=== PATIENT | female | born 1935 | race Caucasian/White ===

== ENCOUNTER 2023-05-21 08:13 | Emergency (ER) | payer MEDICARE ==
[~2023-05-21] VITALS: Ht 162.6 cm; Wt 49.9 kg
[2023-05-21 08:13] VITALS: BP_SYST 198; RESP 18; TEMP 97; O2SAT 100
[2023-05-21] MEDS ORDERED: MORPHINE 2 MG/ML INJ. SYRINGE IVP ONE ×3 (10:15→17:30)
[2023-05-21] MEDS ORDERED: ONDANSETRON HCL 4 MG/2 ML VIAL IVP ONE (10:15)
[2023-05-21 11:21] LABS: HEMATOCRIT 40.3 % (36-48); HEMOGLOBIN 13.4 g/dL (12.0-16.0); MEAN CORPUSCULAR HEMOGLOBIN 31 pg (27-31); MEAN CORPUSCULAR HGB CONC 33 % (32-36); MEAN CORPUSCULAR VOLUME 93 fL (79.0-98.0); PLATELET COUNT (AUTO) 438 K/uL (130-430); RED BLOOD CELL COUNT(AUTO) 4.35 MIL/uL (4.2-6.2); RED CELL DISTRIBUTION WIDTH 14.2 % (9.0-15.0)
[2023-05-21 11:26] LABS: WHITE BLOOD COUNT (AUTO) 42.1 K/uL (4.8-10.8)
[2023-05-21 11:33] LABS: ANION GAP 10 (5-15); CALCIUM 10.3 mg/dL (8.4-11.0); CARBON DIOXIDE 25 mmol/L (23-29); CHLORIDE 104 mmol/L (98-107); CREATININE 0.56 mg/dL (0.55-1.30); GLUCOSE 123 mg/dL (74-106); POTASSIUM 3.9 mmol/L (3.5-5.1); SODIUM SERUM 139 mmol/L (136-145); UREA NITROGEN, BLOOD 7 mg/dL (8-21)
[2023-05-21 11:37] LABS: ALANINE AMINOTRANSFERASE 28 U/L (12-78); ALBUMIN 3.6 g/dL (3.4-4.8); ASPARTATE AMINOTRANSFERASE 18 U/L (10-37); BILIRUBIN,DIRECT 0.1 mg/dL (0.0-0.3); TOTAL BILIRUBIN 0.4 mg/dL (0.0-1.0)
[2023-05-21 11:52] LABS: LYMPHOCYTES % (MANUAL) 25 % (20-46)
[2023-05-21 11:53] LABS: ATYPICAL LYMPHOCYTES % 9 % (0-0); BASOPHILS % (MANUAL) 0 % (0-2); EOSINOPHILS % (MANUAL) 0 % (0-7); MONOCYTES % (MANUAL) 0 % (0-11); SMUDGE CELLS MANY
[2023-05-21] MEDS ORDERED: KETOROLAC TROMETHAMINE 15 MG VIAL IVP ONE (12:45)
[2023-05-21 14:06] LABS: BASOPHILS # (AUTO) 0.1 K/uL (0.0-0.2); BASOPHILS % (AUTO) 0.1 % (0.0-2.0); HEMATOCRIT 39.9 % (36-48); HEMOGLOBIN 13.3 g/dL (12.0-16.0); LYMPHOCYTES # (AUTO) 19.4 K/uL (1.0-5.5); LYMPHOCYTES % (AUTO) 49.6 % (20.5-51.5); MEAN CORPUSCULAR HEMOGLOBIN 31 pg (27-31); MEAN CORPUSCULAR HGB CONC 33 % (32-36); MEAN CORPUSCULAR VOLUME 92 fL (79.0-98.0); MONOCYTES # (AUTO) 1.1 K/uL (0.0-1.0); MONOCYTES % (AUTO) 2.8 % (1.7-9.3); NEUTROPHILS # (AUTO) 18.6 K/uL (1.8-7.7); NEUTROPHILS % (AUTO) 47.5 % (40.0-70.0); PLATELET COUNT (AUTO) 399 K/uL (130-430); RED BLOOD CELL COUNT(AUTO) 4.35 MIL/uL (4.2-6.2); RED CELL DISTRIBUTION WIDTH 14.1 % (9.0-15.0)
[2023-05-21 14:09] LABS: WHITE BLOOD COUNT (AUTO) 39.2 K/uL (4.8-10.8)
[2023-05-21 18:04] VITALS: BP_SYST 152; PULSE 82; RESP 20; TEMP 98.2; O2SAT 97
== END 2023-05-21 18:04 | disposition short-term general hospital (02) ==
LOC: SED 08:13
DX: S72.032A Displaced midcervical fracture of left femur, initial encounter for closed fracture (principal); D72.829 Elevated white blood cell count, unspecified; Z79.899 Other long term (current) drug therapy; W01.0XXA Fall on same level from slipping, tripping and stumbling without subsequent striking against object, initial encounter; Y93.89 Activity, other specified; Y92.89 Other specified places as the place of occurrence of the external cause; Y99.8 Other external cause status
CPT/HCPCS: 99285; 96374; 70450; 71045; 96375; 80076; 80048; 85025; 36415; 93005; 73502; 73552; 76376; 96376; 72170; 85027; 85007; J1885; J2405; J2270